=== PATIENT | male | born 1955 | race Caucasian/White ===

== ENCOUNTER 2019-03-10 10:50 | Day surgery (SDC) | payer OTHER, SELFPAY ==
--- NOTE | 2019-03-10 | DI.RAD.S_ITS ---
PROCEDURE: XR KUB INDICATIONS: renal calculus TECHNIQUE: One view of the abdomen acquired. COMPARISON: [facility], CR, XR ABDOMEN 1 VIEW, 01/25/2019, 13:30. FINDINGS: Surgical changes and devices: There has been interval placement of a right-sided ureteral stent. The stent appears to be intact and appropriately positioned. Postsurgical changes of the left hip are also evident. Bowel: A few air-filled small bowel loops are seen scattered throughout the abdomen. No distended small bowel loops are evident. Air and stool are seen within the colon. No obvious pneumoperitoneum. Soft tissues: A calcification to the right of the L2 transverse process is identified that is overlying the stent and may be positioned within the ureter. Visualized solid organ contours appear normal in size. Bones: No suspicious bony lesions. IMPRESSION: 1. Right-sided ureteral stent. 2. Probable proximal right ureteral calculus. 3. Probable mild small bowel ileus. No definite obstruction. Dictated by: Greg Kline M.D. on 03/10/2019 at 11:19 Approved by: Greg Kline M.D. on 03/10/2019 at 11:21
--- NOTE | 2019-03-10 11:02 | PM.PREOP ---
Pre-operative Note Interval Note History & Physical reviewed/Exam performed by Physician: Yes Changes to H&P: No H&P completed within 30 days and has changed as indicated here:: H& P on file.
[2019-03-10 11:29] VITALS: BP 128/84; PULSE 58; RESP 20; TEMP 35.6; O2SAT 100; BMI 27.3
--- NOTE | 2019-03-10 11:57 | SUR.PREOP ---
Patient to xray for KUB per orders.
[2019-03-10] MEDS: LACTATED RINGERS 1,000 ML 42 ML IV (12:00)
[2019-03-10] MEDS: CEFAZOLIN 1 GM/50 ML FROZ.PIGGY IV (14:08)
--- NOTE | 2019-03-10 14:56 | SUR.OPER ---
Lithotomy on padded bed, head on pillow, arms secured at sides Legs secured in padded yellow fins stirrups.
[2019-03-10 15:21] VITALS: BP 125/82; PULSE 73; RESP 16; TEMP 36.9; O2SAT 98
[2019-03-10 15:27] VITALS: BP 133/87; PULSE 75; RESP 13; O2SAT 99
--- NOTE | 2019-03-10 15:34 | PM.OP.1 ---
Operative Date/Time/Diagnoses Date of procedure: 03/10/19 Time of procedure: 15:00 Pre-op diagnosis: Right ureteropelvic junction stone Retained right ureteral stent Post-op diagnosis: same Procedure & Clinicians Procedure: 1. Right extracorporeal shockwave lithotripsy (power level 7.0 x2 1000 shocks ) this is a 50 2. Cystoscopy and removal right ureteral stent Same procedure as scheduled: Yes Indications: 1. Right ureteral pelvic junction calculus 2. Retained right ureteral stent Surgeon: Garrick Billy Click Yes if Unassisted: Yes Anesthesia Type: General Operative Notes Findings: Ten by 7 mm right ureteral pelvic junction calculus Retained right ureteral stent Closure Type: not applicable Specimen(s): none sent Estimated Blood Loss (mL): 0 Blood products transfused: none Procedure in detail: The patient was positioned in supine and administered general anesthesia the index calculus was localized in the xy and Z plane lithotripsy was commenced at minimal power level at a rate of 60 shocks per minute. The power level was then gradually increased to a maximal power level of 7.0 and the rate was increased to 90 shocks per minute the stone and its fragments were removed were really localize numerous times throughout the case using fluoroscopy. At 2000 shocks there was excellent evidence of fragmentation. The patient was then repositioned in semi lithotomy in the lower abdomen genitalia and groin were prepped and draped in sterile fashion. A 22 [place] mckeon endoscope was advanced the lower urinary tract with findings of a normal urethra coapted external sphincter 3.5 cm length prostate with mild lateral lobe hyperplasia. The bladder contained blood tinged urine and a right ureteral stent in expected position. Using a foreign body grasper the stent was engaged and removed without incident the patient was then repositioned in supine was awakened and transferred to a gurney and then transported to recovery in stable condition. Complications: none Post-operative Condition: stable Disposition: PACU Plan for aftercare: Schedule appointment with Dr. Billy 6-8 weeks with [facility]
[2019-03-10 15:35] VITALS: BP 133/82; PULSE 58; RESP 13; TEMP 36.3; O2SAT 98
[2019-03-10] MEDS: FUROSEMIDE 40 MG/4 ML VIAL 20 MG IV (15:37)
[2019-03-10 15:42] VITALS: BP 122/75; PULSE 60; RESP 12; TEMP 36.4; O2SAT 97
[2019-03-10 15:51] VITALS: BP 122/73; PULSE 55; RESP 16; TEMP 36.1; O2SAT 98
--- NOTE | 2019-03-10 15:57 | SUR.PHASEII ---
Patient ambulated to bathroom to void without difficulty.
--- NOTE | 2019-03-10 16:22 | SUR.PHASEII ---
Patient discharged home in stable condition with family. All belongings returned.
== END 2019-03-10 16:28 | disposition home or self-care (01) ==
PROVIDERS: PCP Family Medicine; Visit Provider Specialist
PROC: (CPT 50590; principal; 2019-03-10 12:45)
DX: N20.1 Calculus of ureter (principal); N40.1 Benign prostatic hyperplasia with lower urinary tract symptoms
CPT/HCPCS: 50590; 74018; J1940; J3010